=== PATIENT | male | born 1960 | race Caucasian/White ===

== ENCOUNTER → 2017-01-04 | Emergency (ER) | payer OTHER ==
[~2017-01-04] MED LIST: ACETAMINOPHEN 325 MG TABLET (FP) ONE; ACETAMINOPHEN 325 MG TABLET (FP) PO ONE; ACETAMINOPHEN WITH CODEINE 300MG/30MG TABLET ONE
[2017-01-04 23:43] VITALS: BP 131/73; PULSE 88; TEMP 97.6; BMI 22.1
--- NOTE | 2017-01-05 00:06 | PDOC ---
History of Present Illness - General History Source: Patient Exam Limitations: No Limitations - History of Present Illness Initial Comments: 01/05/17 00:36 The patient is a 56 year old male, with a significant past medical history of PVD, anemia, asthma, COPD (on 2L O2 at home as needed), CHF, ESRD on dialysis MWF, and hypertension, who presents to the emergency department with right arm pain and swelling with discoloration for the past 3 days. The patient states that he has been taking motrin for the pain and has been applying warm compresses to the area and talking Motrin for the pain with minimal relief. He notes that he saw a vascular surgeon a few days ago who check his fistula, which at the time was working properly. The patient denies chest pain, shortness of breath, headache and dizziness. Denies fever, chills, nausea, vomit, diarrhea and constipation. Allergies: None Past surgical history: B/L KIDNEY TRANSPLANT 1992, appendectomy Social history: No alcohol, tobacco or drug use reported PMD - Dr. Cavazos <Shivam Curry - Last Filed: 01/05/17 02:05> <Parminder Gautam - Last Filed: 01/05/17 02:19> - General Chief Complaint: Edema Stated Complaint: SWELLING ON RT ARM Time Seen by Provider: 01/04/17 23:38 Past History <Shivam Curry - Last Filed: 01/05/17 02:05> - Past Medical History Anemia: No Asthma: No Cancer: No Cardiac Disorders: No CVA: No COPD: No CHF: No Dementia: No Diabetes: No Dialysis: Yes (Sat) GI Disorders: Yes (ACID REFLUX) Disorders: No HTN: No Hypercholesterolemia: Yes Liver Disease: No Suicide Attempt (Hx): No Seizures: No Thyroid Disease: No - Surgical History Abdominal Surgery: Yes (B/L KIDNEY TRANSPLANT 1992) Appendectomy: Yes Cardiac Surgery: No Cholecystectomy: No Lung Surgery: No Neurologic Surgery: No Orthopedic Surgery: No - Immunization History Immunization Up to Date: Yes (PNA AND FLU 2012) - Psycho/Social/Smoking Cessation Hx Anxiety: No Suicidal Ideation: No Smoking Status: Yes Smoking History: Former smoker Have you smoked in the past 12 months: No Number of Cigarettes Smoked Daily: 0 If you are a former smoker, when did you quit?: no Information on smoking cessation initiated: No 'Breaking Loose' booklet given: 05/31/13 Hx Alcohol Use: No Drug/Substance Use Hx: No Substance Use Type: None Hx Substance Use Treatment: No <Parminder Gautam - Last Filed: 01/05/17 02:19> - Past Medical History Allergies/Adverse Reactions: Allergies Allergy/AdvReac Type Severity Reaction Status Date / Time No Known Drug Allergies Allergy Verified 01/04/17 23:34 Home Medications: Ambulatory Orders Albuterol Sulfate [Proventil HFA Inhaler -] 1 - 2 inh PO QID #0 inhaler Sevelamer Carbonate [Renvela -] 800 mg PO TID #0 tab 09/09/12 Cinacalcet HCl [Sensipar] 30 mg PO ACDIN 12/02/13 Acetaminophen [Tylenol] 650 mg PO PRN 10/14/14 Aspirin [Aspirin EC] 81 mg PO DAILY 02/08/15 Atorvastatin Ca [Lipitor] 20 mg PO HS 02/08/15 Calcitriol [Rocaltrol -] 1 mcg PO DAILY 02/08/15 Calcium Acetate [Phoslo] 1,334 mg PO TID 02/08/15 Calcium Carbonate 500 mg PO QID 02/08/15 Metoprolol Succinate [Toprol XL -] 25 mg PO DAILY 02/08/15 Pantoprazole Sodium [Protonix] 40 mg PO DAILY 02/08/15 Sucroferric Oxyhydroxide [Velphoro] 500 mg PO TID 02/08/15 Oxycodone HCl [Roxicodone -] 5 mg PO Q6H #20 tablet 08/03/15 Acetaminophen W/ Codeine #3 [Tylenol # 3 -] 1 tab PO Q6H PRN #20 tablet MDD 4 Review of Systems - Review of Systems Able to Perform ROS?: Yes Comments:: 01/05/17 00:36 CONSTITUTIONAL: No fever, no chills, no fatigue EYES: No visual changes ENT: No ear pain, no sore throat CARDIOVASCULAR: No chest pain, no palpitations RESPIRATORY: No cough, no SOB GI: No abdominal pain, no nausea, no vomiting, no constipation, no diarrhea GENITOURINARY: No dysuria, no frequency, no hematuria MUSKULOSKELETAL: No backpain, no joint pain, no myalgias EXTREMITIES: (+) Right upper extremity pain. SKIN: (+) Right upper extremity ecchymosis. NEURO: No headache <Shivam Curry - Last Filed: 01/05/17 02:05> *Physical Exam - Vital Signs Last Vital Signs Temp Pulse Resp BP Pulse Ox 97.6 F 88 18 131/73 96 01/04/17 23:34 01/04/17 23:34 01/04/17 23:34 01/04/17 23:34 01/04/17 23:34 - Physical Exam Comments: 01/05/17 00:37 CONSTITUTIONAL: Well-appearing; well-nourished; in no apparent distress HEAD: Normocephalic; atraumatic EYES: PERRL; EOM intact ENMT: External appears normal; normal oropharynx NECK: Supple; non-tender; no cervical lymphadenopathy CARD: Normal S1, S2; no murmurs, rubs, or gallops RESP: Normal chest excursion with respiration; breath sounds clear and equal bilaterally; no wheezes, rhonchi, or rales ABD: Soft, non-distended; non-tender; no palpable organomegaly, no palpable hernias NEURO: No focal neurological deficiencies. <Shivam Curry - Last Filed: 01/05/17 02:05> - Vital Signs Last Vital Signs Temp Pulse Resp BP Pulse Ox 97.6 F 88 18 131/73 96 01/04/17 23:34 01/04/17 23:34 01/04/17 23:34 01/04/17 23:34 01/04/17 23:34 - Physical Exam Comments: 01/05/17 02:11 EXTR: Right upper extremity: There is an extensive subq hematoma involving the mid and proximal forearm as well as the medial aspect of the arm with a soft tissue mass overlying the biceps measuring proximally 4-5 cm, freely mobile, not attached to the skin, mildly tender to palpation; AV fistula with a palpable thrill is noted to the distal forearm; <Parminder Gautam - Last Filed: 01/05/17 02:19> Medical Decision Making - Medical Decision Making 01/05/17 02:14 Patient is a frail-appearing 56-year-old male with multiple comorbidities, on supplemental O2 via nasal cannula 24 hours a day, who presented with a superficial subcutaneous hematoma to the right upper extremity with a soft tissue collection noted proximally; AV fistula is noted to have a palpable thrill and was evaluated by the patient's vascular surgeon previously. In the ER , patient is afebrile; right upper extremity Doppler ultrasound shows no evidence of DVT. A nonvascular collection is noted to the right arm likely consistent with a subcutaneous hematoma. Patient will be discharged with instructions to take acetaminophen as needed every 4 hours and warm compresses with vascular surgery follow-up. <Parminder Guatam - Last Filed: 01/05/17 02:19> *DC/Admit/Observation/Transfer - Attestations Scribe Attestion: 01/05/17 00:36 Documentation prepared by Shivam Curry, acting as medical anthropology director for Parminder Gautam MD <Shivam Curry - Last Filed: 01/05/17 02:05> <Parminder Gautam - Last Filed: 01/05/17 02:19> Diagnosis at time of Disposition: ESRD (end stage renal disease) on dialysis Hematoma of arm Qualifiers: Encounter type: initial encounter Laterality: right Qualified Code(s): S40.021A - Contusion of right upper arm, initial encounter - Discharge Dispostion Disposition: HOME Condition at time of disposition: Stable - Referrals Referrals: Franca Shields MD [Primary Care Provider] - - Patient Instructions Printed Discharge Instructions: DI for Hematoma (Bruise)
== END | disposition home or self-care (01) ==
LOC: JER 23:19
DX: S40.021A Contusion of right upper arm, initial encounter (principal); I25.10 Atherosclerotic heart disease of native coronary artery without angina pectoris; I13.2 Hypertensive heart and chronic kidney disease with heart failure and with stage 5 chronic kidney disease, or end stage renal disease; N18.6 End stage renal disease; I50.9 Heart failure, unspecified; Z99.2 Dependence on renal dialysis; J44.9 Chronic obstructive pulmonary disease, unspecified; J45.909 Unspecified asthma, uncomplicated; Z94.0 Kidney transplant status; I73.9 Peripheral vascular disease, unspecified; X58.XXXA Exposure to other specified factors, initial encounter; Y93.89 Activity, other specified; Y92.89 Other specified places as the place of occurrence of the external cause
CPT/HCPCS: 93971; 99283-25

== ENCOUNTER 2017-02-09 15:08 | Emergency (ER) | payer OTHER ==
[2017-02-09 15:26] VITALS: BP 109/73; PULSE 67; TEMP 97.6; BMI 21.2
--- NOTE | 2017-02-09 16:12 | PDOC ---
History of Present Illness - General History Source: Patient, Old Records Exam Limitations: No Limitations - History of Present Illness Initial Comments: 02/09/17 16:52 The patient is a 56 year old male with past medical history of hypertension, CHF , COPD (2L of O2 at home PRN), PVD, ESRD (on dialysis and Saturday), anemia , and asthma who presents to the ED with complaints of right toe pain for over one week. The patient locates the pain to his right big toe, and rates it 10/10 in severity. He states that what began as a small crack due to dry skin has since worsened and began to open up. He has informed his renal physician about this in which he was prescribed Tylenol III. He is unsure of experiencing any fevers secondary to taking the Tylenol. He also adds that he has an appointment to see his PCP next week. The patient denies any nausea, vomiting, diarrhea. He denies any cough or shortness of breath. He denies any urinary symptoms. Surgical History: B/L kidney transplant 1992, appendectomy PMD: Dr. Franca Shields Infant Room Teacher: Dr. Damaso Pena <Latha Jesus - Last Filed: 02/09/17 17:55> - General History Source: Patient Exam Limitations: No Limitations <Coral Huffman - Last Filed: 02/12/17 07:29> - General Chief Complaint: Pain Stated Complaint: PAIN Time Seen by Provider: 02/09/17 16:11 Past History <Latha Jesus - Last Filed: 02/09/17 17:55> - Past Medical History Anemia: No Asthma: No Cancer: No Cardiac Disorders: No CVA: No COPD: No CHF: No Dementia: No Diabetes: No Dialysis: Yes (Sat) GI Disorders: Yes (ACID REFLUX) Disorders: No HTN: No Hypercholesterolemia: Yes Liver Disease: No Suicide Attempt (Hx): No Seizures: No Thyroid Disease: No - Surgical History Abdominal Surgery: Yes (B/L KIDNEY TRANSPLANT 1992) Appendectomy: Yes Cardiac Surgery: No Cholecystectomy: No Lung Surgery: No Neurologic Surgery: No Orthopedic Surgery: No - Immunization History Immunization Up to Date: Yes (PNA AND FLU 2012) - Psycho/Social/Smoking Cessation Hx Anxiety: No Suicidal Ideation: No Smoking Status: Yes Smoking History: Former smoker Have you smoked in the past 12 months: No Number of Cigarettes Smoked Daily: 0 If you are a former smoker, when did you quit?: 2 years ago Information on smoking cessation initiated: No 'Breaking Loose' booklet given: 05/31/13 Hx Alcohol Use: No Drug/Substance Use Hx: No Substance Use Type: None Hx Substance Use Treatment: No <NathanaelCoral - Last Filed: 02/12/17 07:29> - Past Medical History Allergies/Adverse Reactions: Allergies Allergy/AdvReac Type Severity Reaction Status Date / Time No Known Drug Allergies Allergy Verified 02/09/17 15:15 Home Medications: Ambulatory Orders Albuterol Sulfate [Proventil HFA Inhaler -] 1 - 2 inh PO QID #0 inhaler Sevelamer Carbonate [Renvela -] 800 mg PO TID #0 tab 09/09/12 Cinacalcet HCl [Sensipar] 30 mg PO ACDIN 12/02/13 Acetaminophen [Tylenol] 650 mg PO PRN 10/14/14 Aspirin [Aspirin EC] 81 mg PO DAILY 02/08/15 Atorvastatin Ca [Lipitor] 20 mg PO HS 02/08/15 Calcitriol [Rocaltrol -] 1 mcg PO DAILY 02/08/15 Calcium Acetate [Phoslo] 1,334 mg PO TID 02/08/15 Calcium Carbonate 500 mg PO QID 02/08/15 Metoprolol Succinate [Toprol XL -] 25 mg PO DAILY 02/08/15 Pantoprazole Sodium [Protonix] 40 mg PO DAILY 02/08/15 Sucroferric Oxyhydroxide [Velphoro] 500 mg PO TID 02/08/15 Oxycodone HCl [Roxicodone -] 5 mg PO Q6H #20 tablet 08/03/15 Acetaminophen W/ Codeine #3 [Tylenol # 3 -] 1 tab PO Q6H PRN #20 tablet MDD 4 Acetaminophen W/ Codeine #3 [Tylenol # 3 -] 1 tab PO BID #10 tablet MDD 2 Doxycycline Hyclate [Vibramycin -] 100 mg PO DAILY #14 capsule 02/09/17 Review of Systems - Review of Systems Able to Perform ROS?: Yes Comments:: 02/09/17 16:53 GENERAL/CONSTITUTIONAL: No fever or chills. No weakness. HEAD, EYES, EARS, NOSE AND THROAT: No change in vision. No ear pain or discharge. No sore throat. CARDIOVASCULAR: No chest pain or shortness of breath. RESPIRATORY: No cough, wheezing, or hemoptysis. GASTROINTESTINAL: No nausea, vomiting, diarrhea or constipation. GENITOURINARY: No dysuria, frequency, or change in urination. MUSCULOSKELETAL: No joint or muscle swelling or pain. No neck or back pain. SKIN: Present: Ulcer to right big toe EXTREMITIES: Present: Right big toe pain NEUROLOGIC: No headache, vertigo, loss of consciousness, or change in strength/ sensation. ENDOCRINE: No increased thirst. No abnormal weight change. HEMATOLOGIC/LYMPHATIC: No anemia, easy bleeding, or history of blood clots. ALLERGIC/IMMUNOLOGIC: No hives or skin allergy. All Other Systems: Reviewed and Negative <Latha Jesus - Last Filed: 02/09/17 17:55> *Physical Exam - Vital Signs Last Vital Signs Temp Pulse Resp BP Pulse Ox 97.6 F 67 20 109/73 98 02/09/17 15:15 02/09/17 15:15 02/09/17 15:15 02/09/17 15:15 02/09/17 15:15 - Physical Exam Comments: 02/09/17 16:54 GENERAL: Awake, alert, and fully oriented, in no acute distress HEAD: No signs of trauma EYES: PERRLA, EOMI, sclera anicteric, conjunctiva clear ENT: Auricles normal inspection, hearing grossly normal, nares patent, oropharynx clear without exudates. Moist mucosa NECK: Normal ROM, supple, no lymphadenopathy, JVD, or masses LUNGS: Breath sounds equal, clear to auscultation bilaterally. No wheezes, and no crackles HEART: Systolic ejection murmur. Regular rate and rhythm, normal S1 and S2, no rubs or gallops ABDOMEN: Soft, nontender, normoactive bowel sounds. No guarding, no rebound. No masses EXTREMITIES: 2.5 x 1 cm ulcer on right big toe with denuded skin, fibrinous exudate. No erythema, no lymphangitis. Tender to palpation, but no expressible purulence. Normal range of motion, no edema. No clubbing or cyanosis. NEUROLOGICAL: Cranial nerves II through XII grossly intact. Normal speech, normal gait SKIN: Warm, Dry, normal turgor, no rashes or lesions noted. <Latha Jesus - Last Filed: 02/09/17 17:55> - Vital Signs Last Vital Signs Temp Pulse Resp BP Pulse Ox 97.6 F 67 20 109/73 98 02/09/17 15:15 02/09/17 15:15 02/09/17 15:15 02/09/17 15:15 02/09/17 15:15 <Coral Huffman - Last Filed: 02/12/17 07:29> ED Treatment Course - LABORATORY CBC & Chemistry Diagram: 02/09/17 16:40 02/09/17 16:40 <Latha Jesus - Last Filed: 02/09/17 17:55> - LABORATORY CBC & Chemistry Diagram: 02/09/17 16:40 02/09/17 16:40 <Coral Huffman - Last Filed: 02/12/17 07:29> Medical Decision Making - Medical Decision Making 02/09/17 17:55 Phone call placed to Dr. Shields via answering service and call was connected immediately to covering physician Dr. Hamm. Case discussed. <Latha Jesus - Last Filed: 02/09/17 17:55> - Medical Decision Making 02/09/17 16:12 56 yo M h/o HTN, CHF, COPD (on 2L NC), PVD, ESRD on dialysis MWFS, anemia who presents to the ER due to right great toe ulcer He states this skin defect began as a crack in his skin This worsened to become a ulcer No surrounding erythema He complained to the dialysis physician, who recommended tylenol for pain No fevers or chills 02/09/17 17:49 Laboratory Tests 03/26/16 03/26/16 02/09/17 07:00 07:00 16:40 WBC 2.5 L 4.3 D Hgb 8.9 L 10.5 L D Hct 26.9 L 32.3 L D Plt Count 85 L 111 L D Potassium BUN 58 H D Creatinine 9.9 H* D 02/09/17 16:40 WBC Hgb Hct Plt Count Potassium 4.3 BUN 36 H D Creatinine 5.6 H D 02/09/17 17:51 02/09/17 18:03 Xray: no fracture noted, no air noted Case reviewed with Dr Hamm He states, pt can be discharged to home on Doxycycline Pt can follow up with Dr Cavazos on Saturday in the office return to the ER for any other concerns or complaints 02/09/17 18:09 02/09/17 18:11 02/09/17 18:16 Doppler not working Foot is warm Xray demonstrates no periosteal elevation 02/09/17 18:41 <Coral Huffman - Last Filed: 02/12/17 07:29> *DC/Admit/Observation/Transfer - Attestations Scribe Attestion: 02/09/17 16:57 Documentation prepared by Latha Jesus, acting as medical billing manager for Coral Huffman MD. <Latha Jesus - Last Filed: 02/09/17 17:55> - Discharge Dispostion Admit: No <Coral Huffman - Last Filed: 02/12/17 07:29> Diagnosis at time of Disposition: Toe ulcer Qualifiers: Laterality: right Non-pressure ulcer stage: limited to breakdown of skin Qualified Code(s): L97.511 - Non-pressure chronic ulcer of other part of right foot limited to breakdown of skin - Discharge Dispostion Disposition: HOME Condition at time of disposition: Stable - Prescriptions Prescriptions: Acetaminophen W/ Codeine #3 [Tylenol # 3 -] 1 tab PO BID #10 tablet MDD 2 Doxycycline Hyclate [Vibramycin -] 100 mg PO DAILY #14 capsule - Referrals Referrals: Franca Shields MD [Primary Care Provider] - - Patient Instructions Printed Discharge Instructions: DI for Pressure Sores Additional Instructions: Thank you for coming in to the ER Please follow up with Dr Garcia on SATURDAY (in 2 days) Please take antibiotics as prescribed Please return to the ER for any other concerns or complaints
[2017-02-09] MEDS ORDERED: ACETAMINOPHEN WITH CODEINE 300MG/30MG TABLET PO ONE (16:24)
[2017-02-09 16:49] LABS: BASOPHIL 1.3 % (0-2.0); EOSINOPHIL 1.6 % (0-4.5); MCH 32.2 pg (25.7-33.7); MCHC 32.6 g/dl (32.0-35.9); MEAN CELL VOLUME 98.8 fl (80-96); MEAN PLT VOLUME 8.5 fl (7.5-11.1); NEUTROPHILS 74.9 % (42.8-82.8); PLATELET COUNT 111 K/MM3 (134-434); RDW 16.2 % (11.9-15.9); WHITE BLOOD COUNT 4.3 K/mm3 (4.0-10.0)
[2017-02-09 17:14] LABS: ALBUMIN 3.6 g/dl (3.4-5.0); BILIRUBIN,TOTAL 1.3 mg/dL (0.2-1.0); CALCIUM 9.3 mg/dL (8.5-10.1); CREATININE 5.6 mg/dL (0.7-1.3); TOT PROT 6.9 g/dl (6.4-8.2)
== END 2017-02-09 18:57 | disposition home or self-care (01) ==
LOC: JER 15:08
DX: L97.511 Non-pressure chronic ulcer of other part of right foot limited to breakdown of skin (principal); I50.9 Heart failure, unspecified; J44.9 Chronic obstructive pulmonary disease, unspecified; I12.0 Hypertensive chronic kidney disease with stage 5 chronic kidney disease or end stage renal disease; N18.6 End stage renal disease; Z99.2 Dependence on renal dialysis; Z87.891 Personal history of nicotine dependence
CPT/HCPCS: 36415; 73660-TC; 80053; 85025; 87040; 99282-25

== ENCOUNTER 2017-02-21 09:48 | Day surgery (SDC) | payer OTHER ==
[2017-02-20 17:40] VITALS: BMI 21.7
[2017-02-21] MEDS ORDERED: HEPARIN NA (PORCINE) 5,000 UNITS/ML 1ML VIAL ONE ×2 (10:24→10:59)
[2017-02-21] MEDS ORDERED: LIDOCAINE HCL 1%, 10 MG/ML (20ML VIAL) ONE (10:25)
[2017-02-21 10:39] LABS: INR 1.32 (0.82-1.09); PROTHROMBIN TIME (PATIENT) 14.6 SEC (9.98-11.88)
[2017-02-21] MEDS ORDERED: MIDAZOLAM HCL 2 MG/2 ML SINGLE DOSE VIAL ONE (10:59)
[2017-02-21] MEDS ORDERED: ceFAZolin SODIUM 1 GM VIAL ONE (11:17)
[2017-02-21] MEDS ORDERED: ceFAZolin SODIUM 1 GM VIAL IVPB ONE (11:18)
[2017-02-21] MEDS ORDERED: LIDOCAINE HCL 1%, 10 MG/ML (50 mL VIAL) IJ ONE (11:21)
[2017-02-21] MEDS ORDERED: BACITRACIN 30 GM TUBE TOPICAL OINTMENT ONE (12:02)
[2017-02-21] MEDS ORDERED: morphine CARPU-JECT 2 MG/1 ML DISP.SYRIN IVPUSH PRN (12:13)
[2017-02-21] MEDS ORDERED: oxyCODONE HCL 5 MG TABLET PO PRN (12:13)
[2017-02-21] MEDS ORDERED: ACETAMINOPHEN 325 MG TABLET (FP) PO PRN (12:13)
[2017-02-21] MEDS ORDERED: ONDANSETRON 4 MG/2 ML VIAL IVPUSH PRN (12:13)
--- NOTE | 2017-02-21 12:13 | OP ---
Operative Note - Note: Operative Date: 02/21/17 Pre-Operative Diagnosis: right great toe ulcer Operation: Aortogram, right lower ext angiogram Findings: one vessel runoff -- AT Post-Operative Diagnosis: Same as Pre-op Surgeon: Shailesh Hou Anesthesia: Fractional Estimated Blood Loss (mls): 50 Operative Report Dictated: Yes
[2017-02-21] MEDS ORDERED: SODIUM CHLORIDE 1,000 ML IV SCH (12:15)
--- NOTE | 2017-02-21 12:25 | HP ---
Admitting History and Physical - Admission Chief Complaint: right great toe ulcer - Past Medical History Cardiovascular: Yes: CAD (Probable), HTN, Murmur, Pulmonary Hypertension (per last echo 05/2013) Pulmonary: Yes: COPD, O2 Dependent (see HPI) Renal/: Yes: Renal Failure, Hemodialysis, Other (s/p failed renal transplant see HPI) Heme/Onc: Yes: Anemia - Past Surgical History Past Surgical History: Yes: Hernia Repair, Kidney Transplant - Smoking History Smoking history: Former smoker Have you smoked in the past 12 months: No Aproximately how many cigarettes per day: 0 If you are a former smoker, when did you quit?: 2 years ago - Alcohol/Substance Use Hx Alcohol Use: No History of Substance Use: reports: None - Social History ADL: Family Assistance History of Recent Travel: No Home Medications - Allergies Allergies/Adverse Reactions: Allergies Allergy/AdvReac Type Severity Reaction Status Date / Time No Known Drug Allergies Allergy Verified 02/09/17 15:15 - Home Medications Home Medications: Ambulatory Orders Albuterol Sulfate [Proventil HFA Inhaler -] 1 - 2 inh PO QID #0 inhaler Sevelamer Carbonate [Renvela -] 800 mg PO TID #0 tab 09/09/12 Cinacalcet HCl [Sensipar] 30 mg PO ACDIN 12/02/13 Acetaminophen [Tylenol] 650 mg PO PRN 10/14/14 Aspirin [Aspirin EC] 81 mg PO HS 02/08/15 Atorvastatin Ca [Lipitor] 20 mg PO HS 02/08/15 Calcitriol [Rocaltrol -] 1 mcg PO DAILY 02/08/15 Calcium Acetate [Phoslo] 1,334 mg PO TID 02/08/15 Calcium Carbonate 500 mg PO QID 02/08/15 Metoprolol Succinate [Toprol XL -] 25 mg PO DAILY 02/08/15 Pantoprazole Sodium [Protonix] 40 mg PO DAILY 02/08/15 Sucroferric Oxyhydroxide [Velphoro] 500 mg PO TID 02/08/15 Oxycodone HCl [Roxicodone -] 5 mg PO Q6H #20 tablet 08/03/15 Collagenase Clostridium Hist. [Santyl] 1 applic TP DAILY #90 oint...g. 02/12/17 Family Disease History - Family Disease History Family Disease History: CA: Mother Physical Examination Vital Signs: Vital Signs Temperature 97.5 F L 02/21/17 10:22 Pulse Rate 107 H 02/21/17 10:22 Respiratory Rate 18 02/21/17 10:22 Blood Pressure 116/75 02/21/17 10:22 O2 Sat by Pulse Oximetry (%) Constitutional: Yes: Well Nourished Eyes: Yes: WNL HENT: Yes: WNL Neck: Yes: WNL Cardiovascular: Yes: WNL Respiratory: Yes: WNL, On Nasal O2 Gastrointestinal: Yes: WNL Extremities: Yes: Other (right great toe ulcer) Labs: CBC, BMP 02/21/17 09:57 Assessment/Plan right great toe ulcer 1. For angiogram today
[2017-02-21 13:10] VITALS: TEMP 97.6
[2017-02-21 13:14] VITALS: PULSE 88
[2017-02-21 14:13] VITALS: BP 94/62
--- NOTE | 2017-02-24 19:45 | OP ---
DATE OF OPERATION: 02/21/2017 PREOPERATIVE DIAGNOSIS: Right 2nd toe ulcer. POSTOPERATIVE DIAGNOSIS: Right 2nd toe ulcer. PROCEDURE: Aortogram, right lower extremity angiogram. SURGEON: Shailesh Canales DO ANESTHESIA: Fractional. BLOOD LOSS: 10 mL. The patient is a 53-year-old male who has an ulcer on his right foot. It was decided that he would need an angiogram. The patient was consented for the procedure, understanding all risks, benefits, alternatives. He was then taken to the operating room. Once in the operating room, he was placed on operating table in supine manner and the area of the right and left groin were prepped and draped in a sterile surgical manner. We started out in the left groin and injected 10 mL lidocaine 1% over the left common femoral artery. We then used our micropuncture needle and punctured the left common femoral artery. Micropuncture wire was inserted and a traditional 5-Occitan sheath was inserted. We then placed a 0.035 floppy guidewire up into the aorta, followed by our Omni Flush catheter. However, the aorta was severely tortuous and we could not negotiate getting up the aorta or getting across it to the other side. At this point, we decided that we would need to go ipsilateral in the right lower extremity and in the right common femoral artery. At this point we pulled our sheath and pressure was held over the left common femoral artery for 5 minutes, and thereafter there was no bleeding. The area was wet and dried and Dermabond was placed. We then went ahead and went over to the right side. We then went ahead and went over to the right side, and over went ahead and went over the right common femoral artery and 10 mL of lidocaine 1% was placed there. We then went ahead and used our micropuncture needle and punctured the right common femoral artery. Micropuncture wire was inserted and a traditional 5-Occitan sheath was inserted. We then went ahead and placed a 0.035 floppy guidewire. We then went ahead and shot an angiogram of the right lower extremity via hand injection, showing that the common femoral artery, the profunda, and the SFA were patent. The popliteal artery was patent. The patient had 1-vessel runoff going down into the foot, which was the posterior tibial artery. There was no anterior tibial artery present. At this point there were no stenoses that needed to be opened, and no intervention was needed. At this point we removed our 5-Occitan sheath. Pressure was held over the right common femoral artery for 5 minutes. After there was no more bleeding, the area was wet and dried and Dermabond was placed. Patient tolerated procedure, no complication. Patient was transferred to PACU in stable condition. SHAILESH CANALES DO [id number]
== END 2017-02-21 14:13 | disposition home or self-care (01) ==
LOC: JASU-SURG 09:48
PROVIDERS: ATTEND Surgery Vascular Surgery
PROC: B41DZZZ Fluoroscopy of Aorta and Bilateral Lower Extremity Arteries (ICD-10-PCS; principal; 2017-02-21 10:00)
DX: L97.519 Non-pressure chronic ulcer of other part of right foot with unspecified severity (principal); I12.0 Hypertensive chronic kidney disease with stage 5 chronic kidney disease or end stage renal disease; N18.6 End stage renal disease; Z99.2 Dependence on renal dialysis
CPT/HCPCS: 36415; 76000-TC; 84132; 85610; 85730; 94760; J1644

== ENCOUNTER 2017-03-02 08:47 | Inpatient (IN) | payer OTHER ==
--- NOTE | 2017-03-02 09:19 | PDOC ---
History of Present Illness - General History Source: Patient, Old Records Exam Limitations: No Limitations <Lucy Mercedes - Last Filed: 03/02/17 12:15> - History of Present Illness Initial Comments: 03/02/17 10:45 The patient is a 56 year old male, with a significant past medical history of anemia, CHF, asthma, COPD (2L of O2 at home PRN), PVD, ESRD (on dialysis and Saturday), who presents to the emergency department with pain to his right great toe ulcer today. The patient s/p right lower extremity angiogram with no stenosis visualized on 02/24/[address] Shailesh Hou. He denies chest pain, shortness of breath, headache and dizziness. He denies fever, chills, nausea, vomit, diarrhea and constipation. He denies dysuria, frequency, urgency and hematuria. Allergies: NKDA Past surgical history: s/p right lower extremity angioplasty on 02/24/[address] Hou, B/L kidney transplant (1992), appendectomy PCP - Dr. Shields Maintenance Team Leader - Dr. Damaso Pena <ToshiaGiana - Last Filed: 03/02/17 16:12> - General Chief Complaint: Pain Stated Complaint: TOE PAIN, SOB Time Seen by Provider: 03/02/17 09:08 Past History - Past Medical History Anemia: Yes Asthma: No Cancer: No Cardiac Disorders: Yes (MURMUR,CAD) CVA: No COPD: Yes (O2 DEPENDENT) CHF: No Dementia: No Diabetes: No Dialysis: Yes GI Disorders: Yes (ACID REFLUX) Disorders: No HTN: Yes (PULMONARY) Hypercholesterolemia: Yes Liver Disease: No Suicide Attempt (Hx): No Seizures: No Thyroid Disease: No - Surgical History Abdominal Surgery: Yes (B/L KIDNEY TRANSPLANT 1992) Appendectomy: Yes Cardiac Surgery: No Cholecystectomy: No Lung Surgery: No Neurologic Surgery: No Orthopedic Surgery: No - Immunization History Immunization Up to Date: Yes (PNA AND FLU 2012) - Psycho/Social/Smoking Cessation Hx Anxiety: No Suicidal Ideation: No Smoking Status: Yes Smoking History: Former smoker Have you smoked in the past 12 months: No Number of Cigarettes Smoked Daily: 0 If you are a former smoker, when did you quit?: 2 years ago Information on smoking cessation initiated: No 'Breaking Loose' booklet given: 05/31/13 Hx Alcohol Use: No Drug/Substance Use Hx: No Substance Use Type: None Hx Substance Use Treatment: No <Lucy Mercedes - Last Filed: 03/02/17 12:15> <Giana Pope - Last Filed: 03/02/17 16:12> - Past Medical History Allergies/Adverse Reactions: Allergies Allergy/AdvReac Type Severity Reaction Status Date / Time No Known Drug Allergies Allergy Verified 03/02/17 08:56 Home Medications: Ambulatory Orders Albuterol Sulfate [Proventil HFA Inhaler -] 1 - 2 inh PO QID #0 inhaler Sevelamer Carbonate [Renvela -] 800 mg PO TID #0 tab 09/09/12 Cinacalcet HCl [Sensipar] 30 mg PO ACDIN 12/02/13 Acetaminophen [Tylenol] 650 mg PO PRN 10/14/14 Aspirin [Aspirin EC] 81 mg PO HS 02/08/15 Atorvastatin Ca [Lipitor] 20 mg PO HS 02/08/15 Calcitriol [Rocaltrol -] 1 mcg PO DAILY 02/08/15 Calcium Acetate [Phoslo] 1,334 mg PO TID 02/08/15 Calcium Carbonate 500 mg PO QID 02/08/15 Metoprolol Succinate [Toprol XL -] 25 mg PO DAILY 02/08/15 Pantoprazole Sodium [Protonix] 40 mg PO DAILY 02/08/15 Sucroferric Oxyhydroxide [Velphoro] 500 mg PO TID 02/08/15 Oxycodone HCl [Roxicodone -] 5 mg PO Q6H #20 tablet 08/03/15 Collagenase Clostridium Hist. [Santyl] 1 applic TP DAILY #90 oint...g. 02/12/17 Review of Systems - Review of Systems Able to Perform ROS?: Yes Comments:: 03/02/17 10:45 GENERAL/CONSTITUTIONAL: No fever or chills. No weakness. HEAD, EYES, EARS, NOSE AND THROAT: No change in vision. No ear pain or discharge. No sore throat. CARDIOVASCULAR: No chest pain or shortness of breath. RESPIRATORY: No cough, wheezing, or hemoptysis. GASTROINTESTINAL: No nausea, vomiting, diarrhea or constipation. GENITOURINARY: No dysuria, frequency, or change in urination. MUSCULOSKELETAL: No joint or muscle swelling or pain. No neck or back pain. SKIN: (+) painful ulcer to R 1st toe. No rash NEUROLOGIC: No headache, vertigo, loss of consciousness, or change in strength/ sensation. ENDOCRINE: No increased thirst. No abnormal weight change. HEMATOLOGIC/LYMPHATIC: No anemia, easy bleeding, or history of blood clots. ALLERGIC/IMMUNOLOGIC: No hives or skin allergy. <Giana Pope - Last Filed: 03/02/17 16:12> *Physical Exam - Vital Signs Last Vital Signs Temp Pulse Resp BP Pulse Ox 97.7 F 76 20 93/74 100 03/02/17 08:57 03/02/17 08:57 03/02/17 08:57 03/02/17 08:57 03/02/17 08:57 <Lucy Mercedes - Last Filed: 03/02/17 12:15> - Vital Signs Last Vital Signs Temp Pulse Resp BP Pulse Ox 97.7 F 76 20 93/74 100 03/02/17 08:57 03/02/17 08:57 03/02/17 08:57 03/02/17 08:57 03/02/17 08:57 - Physical Exam Comments: 03/02/17 10:46 GENERAL: Awake, alert, and fully oriented, in no acute distress HEAD: No signs of trauma EYES: PERRLA, EOMI, sclera anicteric, conjunctiva clear ENT: Auricles normal inspection, hearing grossly normal, nares patent, oropharynx clear without exudates. Moist mucosa NECK: Normal ROM, supple, no lymphadenopathy, JVD, or masses LUNGS: Breath sounds equal, clear to auscultation bilaterally. No wheezes, and no crackles HEART: Regular rate and rhythm, normal S1 and S2, no murmurs, rubs or gallops ABDOMEN: Soft, nontender, normoactive bowel sounds. No guarding, no rebound. No masses EXTREMITIES: Normal range of motion, no edema. No clubbing or cyanosis. No cords NEUROLOGICAL: Cranial nerves II through XII grossly intact. Normal speech, normal gait SKIN: (+) ulcer with surrounding erythema to 1st right toe extending into the dorsum of the foot to the distal metatarsal region. <Giana Pope - Last Filed: 03/02/17 16:12> Heart Score/ECG Review - ECG Intrepretation Comment:: 03/02/17 16:11 ECG was read by Dr. Mercedes at 10:15 Impression: Atrial Fibrillation with premature ventricular or aberrantly conducted complexes. Right bundle branch block. Lateral infarct. Vent Rate: 81 bpm <Giana Pope - Last Filed: 03/02/17 16:12> ED Treatment Course - LABORATORY CBC & Chemistry Diagram: 03/02/17 10:07 03/02/17 10:07 <Lucy Mercedes - Last Filed: 03/02/17 12:15> - LABORATORY CBC & Chemistry Diagram: 03/02/17 10:07 03/02/17 10:07 - ADDITIONAL ORDERS Additional order review: 03/02/17 10:07 RBC 3.31 L MCV 101.0 H MCHC 32.4 RDW 17.5 H MPV 8.9 Neutrophils % 75.6 Lymphocytes % 15.0 Monocytes % 7.3 Eosinophils % 0.9 Basophils % 1.2 - RADIOLOGY Radiograph Interpretation: CXR was read by Dr. Yoo at 10:40 Impression: imaging reveals a large heart, sclerotic unfolded aorta, pericardial calcification, prominent ileana, degenerative changes and lytic findings in the bones. There is suggestion of old rib trauma. there are compressed vertebral bodies with a [place] spine compatible with renal disease. Since 02/19/17 there is not much change. 03/02/17 11:56 Right foot XRAY was read by Dr. Yoo at 10:42 Impression: Loss of bone density. Possibl soft tissue ulceration by great toe tip. Vascular calcifications. <Giana Pope - Last Filed: 03/02/17 16:12> Medical Decision Making - Medical Decision Making 03/02/17 12:15 56-year-old male with history of COPDon oxygen, end-stage renal disease on dialysis Saturday, CHF, peripheral vascular disease, hypertension who is status post right lower extremity angiogram with no stenosis visualized presents to the emergency Department with complaints of increasing right great toe pain and erythema after being on oral antibiotics for one week. Differential diagnosis includes but is not limited to: Osteomyelitis, cellulitis, sepsis. Plan: 1. Labs 2. IV antibiotics 3. Plain films of the foot 4. Pain management 5. Observe and reevaluate Addendum: Labs were reviewed and are noted in the EMR. The CRP is elevated. The foot film shows no evidence of osteomyelitis of the great toe. Will admit for intravenous antibiotics for failed outpatient treatment of cellulitis. <Lucy Mercedes - Last Filed: 03/02/17 12:15> - Medical Decision Making 03/02/17 10:57 Dr. Shailesh Hou was paged via phone answering service requesting a call back for doctor to doctor consult at this time. I have been informed Dr. Kemp is on-call for Dr. Hou this weekend. 03/02/17 11:45 The patient's case was discussed with Dr. Kemp. <Giana Pope - Last Filed: 03/02/17 16:12> *DC/Admit/Observation/Transfer - Discharge Dispostion Admit: Yes - Attestations Physician Attestion: 03/02/17 12:18 I, Dr. Lucy Mercedes, attest that the scribes documentation that appears above has been prepared under my direction and personally reviewed by me in its entirety. I confirmed that the note above accurately reflects all work, treatment, procedures, and medical decision-making performed by me. <Lucy Mercedes - Last Filed: 03/02/17 12:15> - Attestations Scribe Attestion: 03/02/17 10:47 Documentation prepared by Giana Pope, acting as medical laboratory assistant for Lucy Mercedes MD, <Giana Pope - Last Filed: 03/02/17 16:12> Diagnosis at time of Disposition: Cellulitis of great toe, right, ESRD (end stage renal disease) on dialysis - Discharge Dispostion Condition at time of disposition: Stable - Referrals
[2017-03-02 10:11] LABS: BASOPHIL 1.2 % (0-2.0); EOSINOPHIL 0.9 % (0-4.5); MCH 32.7 pg (25.7-33.7); MCHC 32.4 g/dl (32.0-35.9); MEAN PLT VOLUME 8.9 fl (7.5-11.1); NEUTROPHILS 75.6 % (42.8-82.8); PLATELET COUNT 86 K/MM3 (134-434); RDW 17.5 % (11.9-15.9); WHITE BLOOD COUNT 4.2 K/mm3 (4.0-10.0)
[2017-03-02 10:45] LABS: ALBUMIN 3.6 g/dl (3.4-5.0); ALK PHOS 150 U/L (45-117); ANION GAP 9 (8-16); BILIRUBIN,TOTAL 2.1 mg/dL (0.2-1.0); CALCIUM 9.2 mg/dL (8.5-10.1); CO2 32 mmol/L (21-32); CREATININE 3.6 mg/dL (0.7-1.3); GLUCOSE,RANDOM 83 mg/dL (74-106); SGOT/AST 26 U/L (15-37); SGPT/ALT 14 U/L (12-78); TOT PROT 6.8 g/dl (6.4-8.2)
[2017-03-02] MEDS ORDERED: OXYCODONE/APAP 5/325MG COMBO TABLET PO ONE (11:04)
[2017-03-02 11:08] LABS: C-REACTIVE PROTEIN 1.4 MG/DL (0.00-0.3)
--- NOTE | 2017-03-02 11:16 | EKG ---
Test Reason : Blood Pressure : / mmHG Vent. Rate : 081 BPM Atrial Rate : 107 BPM P-R Int : 000 ms QRS Dur : 176 ms QT Int : 466 ms P-R-T Axes : 000 189 023 degrees QTc Int : 541 ms ATRIAL FIBRILLATION WITH PREMATURE VENTRICULAR OR ABERRANTLY CONDUCTED COMPLEXES RIGHT BUNDLE BRANCH BLOCK LATERAL INFARCT , AGE UNDETERMINED ABNORMAL ECG WHEN COMPARED WITH ECG OF 19-MAR-2016 22:16, NO SIGNIFICANT CHANGE WAS FOUND Confirmed by JOE FUNG MD ([id number]) on 03/02/2017 11:16:24 AM Referred By: Confirmed By:JOE FUNG MD
[2017-03-02] MEDS ORDERED: PIPERACILLIN/TAZOB 3.375 GM/50 ML PRE-DOCKED IV ONE (12:20)
[2017-03-02] MEDS ORDERED: PIPERACILLIN/TAZOB 3.375 GM 50 ML IVPB ONE (12:30)
--- NOTE | 2017-03-02 14:02 | CONSULT ---
Consult Consult Specialty:: Dr. Rai/ Jean Referred by:: Dr. Jade Reason for Consultation:: Patient with ESRD on HD - History of Present Illness Chief Complaint: Right foot infection and ulceration History of Present Illness: The patient is a 56 year old male, with a significant past medical history of ESRD, on HD at [facility] on MWFS ( 4 times a week) , anemia, CHF, asthma, COPD (2L of O2 at home PRN), PVD, who presents to the emergency department with pain to his right great toe ulcer today. The patient s/p right lower extremity angiogram with no stenosis visualized on 02/24/[address] Shailesh Hou. Has right big toe ulceration, which is getting worse. The patient being followed by Dr. Hou. He came for his dialysis today, and snf through, his pain was excruciating and hence he was sent to the ER. - History Source History Provided By: Patient, Medical Record - Past Medical History Cardio/Vascular: Yes: CAD (Probable), HTN, Murmur, Pulmonary Hypertension (per last echo 05/2013) Pulmonary: Yes: COPD, O2 Dependent (see HPI) Renal/: Yes: Renal Failure, Hemodialysis, Other (s/p failed renal transplant see HPI) - Past Surgical History Past Surgical History: Yes: Hernia Repair, Kidney Transplant - Alcohol/Substance Use Hx Alcohol Use: No History of Substance Use: reports: None - Smoking History Smoking history: Former smoker Have you smoked in the past 12 months: No Aproximately how many cigarettes per day: 0 If you are a former smoker, when did you quit?: 2 years ago - Social History Usual Living Arrangement: With Child (one of his daughters) ADL: Family Assistance History of Recent Travel: No Home Medications - Allergies Allergies/Adverse Reactions: Allergies Allergy/AdvReac Type Severity Reaction Status Date / Time No Known Drug Allergies Allergy Verified 03/02/17 08:56 - Home Medications Home Medications: Ambulatory Orders Albuterol Sulfate [Proventil HFA Inhaler -] 1 - 2 inh PO QID #0 inhaler Sevelamer Carbonate [Renvela -] 800 mg PO TID #0 tab 09/09/12 Cinacalcet HCl [Sensipar] 30 mg PO ACDIN 12/02/13 Acetaminophen [Tylenol] 650 mg PO PRN 10/14/14 Aspirin [Aspirin EC] 81 mg PO HS 02/08/15 Atorvastatin Ca [Lipitor] 20 mg PO HS 02/08/15 Calcitriol [Rocaltrol -] 1 mcg PO DAILY 02/08/15 Calcium Acetate [Phoslo] 1,334 mg PO TID 02/08/15 Calcium Carbonate 500 mg PO QID 02/08/15 Metoprolol Succinate [Toprol XL -] 25 mg PO DAILY 02/08/15 Pantoprazole Sodium [Protonix] 40 mg PO DAILY 02/08/15 Sucroferric Oxyhydroxide [Velphoro] 500 mg PO TID 02/08/15 Oxycodone HCl [Roxicodone -] 5 mg PO Q6H #20 tablet 08/03/15 Collagenase Clostridium Hist. [Santyl] 1 applic TP DAILY #90 oint...g. 02/12/17 Family Disease History - Family Disease History Family Disease History: CA: Mother Review of Systems - Review of Systems Constitutional: reports: Weakness Eyes: denies: Blurred Vision HENT: denies: Difficult Swallowing Cardiovascular: denies: Chest Pain Gastrointestinal: denies: Abdominal Pain Musculoskeletal: reports: Extremity Pain (Rt lower extremity pain) Neurological: reports: Numbness, Parasthesia Physical Exam Vital Signs: Vital Signs Temperature 97.7 F 03/02/17 13:10 Pulse Rate 111 H 03/02/17 13:10 Respiratory Rate 16 03/02/17 13:10 Blood Pressure 112/59 03/02/17 13:10 O2 Sat by Pulse Oximetry (%) 96 03/02/17 13:10 Constitutional: Yes: Moderate Distress (pain) HENT: Yes: Normocephalic Neck: Yes: Supple Cardiovascular: Yes: S1, S2 Respiratory: Yes: CTA Bilaterally Gastrointestinal: Yes: Normal Bowel Sounds, Abdomen, Obese Renal/: Yes: Anuria (Patient on Dialysis) Extremities: Yes: Cool, Other (Ulceration of the right big toe. Swollen. Open wound.) Problem List - Problems (1) Cellulitis of great toe, right Code(s): L03.031 - CELLULITIS OF RIGHT TOE (2) ESRD (end stage renal disease) on dialysis Code(s): N18.6 - END STAGE RENAL DISEASE Z99.2 - DEPENDENCE ON RENAL DIALYSIS (3) Anemia in ESRD (end-stage renal disease) Code(s): N18.6 - END STAGE RENAL DISEASE D63.1 - ANEMIA IN CHRONIC KIDNEY DISEASE (4) CHF (congestive heart failure) Code(s): I50.9 - HEART FAILURE, UNSPECIFIED (5) Peripheral artery insufficiency Code(s): I73.9 - PERIPHERAL VASCULAR DISEASE, UNSPECIFIED (6) Peripheral vascular disease Code(s): I73.9 - PERIPHERAL VASCULAR DISEASE, UNSPECIFIED (7) Toe ulcer Code(s): L97.509 - NON-PRESSURE CHRONIC ULCER OTH PRT UNSP FOOT W UNSP SEVERITY Qualifiers: Laterality: right Non-pressure ulcer stage: limited to breakdown of skin Qualified Code(s): L97.511 - Non-pressure chronic ulcer of other part of right foot limited to breakdown of skin Assessment/Plan This is a 56 y/o male with ESRD, on HD MWF& S. 4 Times a week Right toe ulcer, with discharge. R/o Vascular disease vs. Osteomyelitis. IV antibiotics as ordered. Vascular evaluation. Will arrange for HD as needed. Will follow with you. Thank you. Kayla Rai MD
[2017-03-02 15:58] VITALS: BMI 22.5
[2017-03-02 16:25] LABS: ERYTHROCYTE SEDIMENTATION RATE 6 mm/hr (0-20)
--- NOTE | 2017-03-02 18:09 | PN ---
Progress Note (short form) - Note Progress Note: ID Full note dictated Selected Entries 03/02/17 15:36 Temperature 97.7 F Pulse Rate 77 Respiratory 18 Rate Blood Pressure 119/59 Exam Right foot with painful vascular ulcer distal great toe and smaller one 2nd toe no cellulitis NO purulence Laboratory Tests 03/02/17 10:07 WBC 4.2 Hgb 10.8 L Plt Count 86 L IMPRESSION Severe PVD with vascular painful ulcers. ESRD Plan Do not see indication for antibibiotics at this time Vascular consultation Ginna JAIME
[2017-03-02] MEDS: oxyCODONE HCL 5 MG TABLET PO PRN (20:16)
[2017-03-02] MEDS: ASPIRIN COATED 81 MG TABLET.EC PO SCH (22:51)
[2017-03-02] MEDS: ATORVASTATIN CA 20 MG TABLET (FP) PO SCH (22:51)
[2017-03-03] MEDS ORDERED: SUCROFERRIC OXYHYDROXIDE 500 MG PO SCH (08:00)
[2017-03-03] MEDS ORDERED: PT OWN MED DRAWER 7, Y5N ONE ×2 (08:21→18:32)
[2017-03-03] MEDS: SEVELAMER CARBONATE 800 MG TAB (FP) PO SCH ×3 (08:25→17:04)
[2017-03-03] MEDS: CALCIUM ACETATE 667 MG CAPSULE (FP) PO SCH ×3 (08:25→17:04)
[2017-03-03] MEDS: CALCITRIOL 0.25 MCG CAPSULE (FP) PO SCH (09:21)
[2017-03-03] MEDS: COLLAGENASE CLOSTRIDIUM HIST. 30 GRAMS TUBE TP SCH (09:21)
[2017-03-03] MEDS: PANTOPRAZOLE 40 MG TABLET (FP) PO SCH (09:21)
[2017-03-03] MEDS ORDERED: METOPROLOL SUCCINATE 25 MG TAB.SR.24H (FP) PO SCH (10:00)
[2017-03-03] MEDS: oxyCODONE HCL 5 MG TABLET PO PRN ×2 (11:09→20:41)
[2017-03-03] MEDS: ACETAMINOPHEN 325 MG TABLET (FP) PO PRN ×2 (11:10→20:42)
--- NOTE | 2017-03-03 13:58 | PN ---
Progress Note, Physician Chief Complaint: Pt lying in bed Id Note appreciated VasculaR AND CARDIOLOLOGY NOTE APPRECIATED - Current Medication List Current Medications: Active Medications Acetaminophen (Tylenol -) 650 mg PO Q6H PRN PRN Reason: FEVER OR PAIN Last Admin: 03/03/17 11:10 Dose: 650 mg Aspirin (Ecotrin -) 81 mg PO [facility] Last Admin: 03/02/17 22:51 Dose: 81 mg Atorvastatin Calcium (Lipitor -) 20 mg PO [facility] Last Admin: 03/02/17 22:51 Dose: 20 mg Calcitriol (Rocaltrol -) 1 mcg PO DAILY [facility] Last Admin: 03/03/17 09:21 Dose: 1 mcg Calcium Acetate (Phoslo -) 1,334 mg PO TIDCM [facility] Last Admin: 03/03/17 12:13 Dose: Not Given Cinacalcet (Sensipar -) 30 mg PO ACDIN [facility] Collagenase (Santyl -) 1 applic TP DAILY [facility] Last Admin: 03/03/17 09:21 Dose: 1 applic Metoprolol Succinate (Toprol Xl -) 25 mg PO DAILY [facility] Last Admin: 03/03/17 09:21 Dose: 25 mg Non-Formulary Med ( Sucroferric Oxyhydroxide [ Velphoro] 500mg Tab) 1 each PO TIDCM [facility] Oxycodone HCl (Roxicodone -) 5 mg PO Q6H PRN Last Admin: 03/03/17 11:09 Dose: 5 mg Pantoprazole Sodium (Protonix -) 40 mg PO DAILY [facility] Last Admin: 03/03/17 09:21 Dose: 40 mg Sevelamer Carbonate (Renvela -) 800 mg PO TIDCM [facility] Last Admin: 03/03/17 12:13 Dose: Not Given - Objective Vital Signs: Vital Signs Temperature 97.4 F L 03/03/17 09:19 Pulse Rate 73 03/03/17 09:19 Respiratory Rate 22 03/03/17 09:19 Blood Pressure 125/86 03/03/17 09:19 O2 Sat by Pulse Oximetry (%) 96 03/03/17 09:15 Constitutional: Yes: No Distress Eyes: Yes: Conjunctiva Clear HENT: Yes: Atraumatic Neck: Yes: Supple, Trachea Midline Cardiovascular: Yes: Regular Rate and Rhythm Respiratory: Yes: Regular, CTA Bilaterally Gastrointestinal: Yes: Normal Bowel Sounds Extremities: Yes: Other (RT BIG TOE uLCER) Edema: No Wound/Incision: Yes: Dressing Dry and Intact Neurological: Yes: Alert, Oriented - ....Imaging Chest X-ray: Report Reviewed Assessment/Plan RT big toe ulcer ESRD AF HTN HYpercholestrolemia PLAN Continue wound Dressing Vascular Consult ,cardiology consult Continue home medications Monitor inr
--- NOTE | 2017-03-03 14:23 | CONS ---
DATE OF CONSULTATION: 03/02/2017 This is a 56-year-old male with a history of end-stage renal disease and severe peripheral vascular disease, who I am asked to see for a right great distal toe ulcer. The patient has a history of a right lower extremity angiogram and has been followed by Dr. Hou. He has had a chronic ulcer of his distal toe, which was getting worse in the sense that the pain has been excruciating for him. I am asked to see him for antibiotic management for skin and soft tissue infected related to the ulcer. He has no fever or chills. He is on dialysis 3 times a week through an AV fistula in his right arm. Past medical history includes congestive heart failure, COPD, end-stage renal disease, chronic hemodialysis, pulmonary hypertension, kidney transplant. MEDICATIONS: Albuterol, Sensipar, atorvastatin, calcium, metoprolol, oxycodone. ALLERGIES: None known. SOCIAL HISTORY: Quit smoking 2 years ago. No history of alcohol or substance abuse. FAMILY HISTORY, REVIEW OF SYSTEMS: All systems reviewed and noncontributory. PHYSICAL EXAMINATION: General: He was a chronically ill-appearing male in no acute distress. Vital Signs: Temperature 97.7, pulse 77, blood pressure 120/60, respirations 16. Neck: Supple without lymphadenopathy. Lungs: Clear to percussion and auscultation. Heart: S1, S2. Regular rhythm. No audible murmur. Abdomen: Soft. Normoactive bowel sounds. No organomegaly. Extremities: Revealed an exquisitely tender ulcer of the right distal toe with a smaller ulcer present on the right 2nd toe distally. No drainage, purulence, or cellulitis evident. The white count is 4.2, hemoglobin 10.8, platelets 86,000. ASSESSMENT: A 56-year-old male with end-stage renal disease, presents with worsening pain related to vascular ulcer following right lower extremity angioplasty February 24, 2017. Former kidney transplant in 1992 noted. At this point the ulcers do not appear infected. I would await Dr. Hou's consultation and treat with analgesics, but no need for antibiotics at the current time. YOSVANY FAUSTIN M.D. [facility]/[id number]
[2017-03-03 15:02] LABS: INR 1.38 (0.82-1.09); PROTHROMBIN TIME (PATIENT) 15.3 SEC (9.98-11.88)
--- NOTE | 2017-03-03 15:21 | HP ---
DATE OF ADMISSION: 03/02/2017 The patient is a 56-year-old male with a significant past medical history of CHF, asthma, end-stage renal disease on dialysis, peripheral vascular disease, anemia, and atrial fibrillation, presented to the emergency room with complaints of right great toe ulcer with pain. The patient was in the process of dialysis, in between dialysis, with complaints of severe pain over the right big toe ulcer, so referred the patient to the emergency room from the dialysis center. Patient had a right lower extremity angiogram done on February 24. No stenosis found, according to the note. Patient denies any chest pain, shortness of breath, any discharge from the wound, fever. No other symptoms. No known drug allergy. PAST SURGICAL HISTORY: Status post lower extremity angiogram, kidney transplant, and appendectomy. Lives with the family. MEDICATION: The patient is on albuterol inhaler, Renvela, Sensipar, Tylenol, aspirin, Lipitor, Rocaltrol, PhosLo, calcium carbonate, Toprol, Protonix, Velphoro, Roxicodone, collagenase clostridium topical application. PAST MEDICAL HISTORY: As mentioned before, anemia, atrial fibrillation, COPD, hypercholesterolemia, pulmonary hypertension. SURGERY: Bilateral kidney transplant. The patient was a former smoker. No history of any drug administration. REVIEW OF SYSTEMS: General: No fever, no chills. Head and Neck: No vision changes. Cardiovascular: No chest pain, no shortness of breath. Respiratory: No cough, no wheezing. Gastrointestinal: Nothing significant. Genitourinary: Nothing significant. Musculoskeletal: There is a painful ulcer on the right 5th toe. Neurological: Nothing significant. Endocrine: No increased thirst. Hematologic: History of anemia. PHYSICAL EXAMINATION IN EMERGENCY ROOM: Vital Signs: Temperature 97.7. Pulse 76 per minute. Respiration 20. Blood pressure 93/74. Saturation 100%. General: Alert, oriented x3. No apparent distress. Head and Neck: Normal. Pupils equally reactive to light and accommodation. Neck normal. Lungs: Equal bilateral air entry. Cardiovascular: 1st and 2nd sound irregular. Abdomen: Soft and nontender. Normal bowel sounds. Extremities: With an ulcer on the right 1st toe extending into the dorsum of the foot, slight erythema around. Pedal pulses present. EKG shows atrial fibrillation with premature ventricular or aberrantly conducted complexes, right bundle-branch block. Chest x-ray shows large heart, sclerotic aorta. No pericardial calcification. Prominent hilar degenerative changes in the bones, with old rib fracture, compressed vertebral bodies. Right foot x-ray: Loss of bone density, possible soft-tissue ulceration, right great toe. Ossicular calcification present. The patient is a 56-year-old male with a history of COPD, O2 dependent, end-stage renal disease, on dialysis, peripheral vascular disease, hypertension, pulmonary hypertension, status post right lower extremity angiogram, admitted with a great toe ulcer, not responding to oral antibiotics as an outpatient, admitted with a right big toe ulcer with severe pain, end-stage renal disease, anemia, peripheral vascular disease. PLAN: Home medication resumed. ID consult, renal consult, cardiology, and vascular consults called. Wound dressing recommended. Monitor the PT/INR. Patient stable on the floor. BERHANE VALLES M.D. /[id number]
[2017-03-03] MEDS: CINACALCET HCL 30 MG TAB (FP) PO SCH (17:04)
--- NOTE | 2017-03-03 17:50 | PN ---
Progress Note, Physician History of Present Illness: The patient is a 56 year old male, with a significant past medical history of ESRD, on HD at [facility] on MWFS ( 4 times a week) , anemia, CHF, asthma, COPD (2L of O2 at home PRN), PVD, who presents to the emergency department with pain to his right great toe ulcer today. The patient s/p right lower extremity angiogram with no stenosis visualized on 02/24/[address] Shailesh Hou. Has right big toe ulceration, which is getting worse. The patient being followed by Dr. Hou. - Current Medication List Current Medications: Active Medications Acetaminophen (Tylenol -) 650 mg PO Q6H PRN PRN Reason: FEVER OR PAIN Last Admin: 03/03/17 11:10 Dose: 650 mg Aspirin (Ecotrin -) 81 mg PO [facility] Last Admin: 03/02/17 22:51 Dose: 81 mg Atorvastatin Calcium (Lipitor -) 20 mg PO [facility] Last Admin: 03/02/17 22:51 Dose: 20 mg Calcitriol (Rocaltrol -) 1 mcg PO DAILY [facility] Last Admin: 03/03/17 09:21 Dose: 1 mcg Calcium Acetate (Phoslo -) 1,334 mg PO TIDCM [facility] Last Admin: 03/03/17 17:04 Dose: 1,334 mg Cinacalcet (Sensipar -) 30 mg PO ACDIN [facility] Last Admin: 03/03/17 17:04 Dose: 30 mg Collagenase (Santyl -) 1 applic TP DAILY [facility] Last Admin: 03/03/17 09:21 Dose: 1 applic Metoprolol Succinate (Toprol Xl -) 25 mg PO DAILY [facility] Last Admin: 03/03/17 09:21 Dose: 25 mg Non-Formulary Med ( Sucroferric Oxyhydroxide [ Velphoro] 500mg Tab) 1 each PO TIDCM [facility] Oxycodone HCl (Roxicodone -) 5 mg PO Q6H PRN Last Admin: 03/03/17 11:09 Dose: 5 mg Pantoprazole Sodium (Protonix -) 40 mg PO DAILY [facility] Last Admin: 03/03/17 09:21 Dose: 40 mg Sevelamer Carbonate (Renvela -) 800 mg PO TIDCM [facility] Last Admin: 03/03/17 17:04 Dose: 800 mg Warfarin Sodium (Coumadin -) 6 mg PO DAILY@1800 [facility] Last Admin: 03/03/17 17:04 Dose: 6 mg - Objective Vital Signs: Vital Signs Temperature 98.1 F 03/03/17 14:16 Pulse Rate 93 H 03/03/17 14:16 Respiratory Rate 120 H 03/03/17 14:16 Blood Pressure 143/63 03/03/17 14:16 O2 Sat by Pulse Oximetry (%) 96 03/03/17 09:15 Constitutional: Yes: Calm, Anxious Eyes: Yes: Conjunctiva Clear HENT: Yes: Normocephalic Neck: Yes: Supple Cardiovascular: Yes: S1, S2 Respiratory: Yes: Regular. No: Rales, Rhonchi Gastrointestinal: Yes: Normal Bowel Sounds, Soft Genitourinary: No: CVA Tenderness - Left, CVA Tenderness - Right Musculoskeletal: Yes: Back Pain Labs: INR, PTT INR 1.38 (0.82-1.09) H 03/03/17 14:25 Problem List - Problems (1) Cellulitis of great toe, right Code(s): L03.031 - CELLULITIS OF RIGHT TOE (2) ESRD (end stage renal disease) on dialysis Code(s): N18.6 - END STAGE RENAL DISEASE Z99.2 - DEPENDENCE ON RENAL DIALYSIS (3) Anemia in ESRD (end-stage renal disease) Code(s): N18.6 - END STAGE RENAL DISEASE D63.1 - ANEMIA IN CHRONIC KIDNEY DISEASE (4) CHF (congestive heart failure) Code(s): I50.9 - HEART FAILURE, UNSPECIFIED (5) Peripheral artery insufficiency Code(s): I73.9 - PERIPHERAL VASCULAR DISEASE, UNSPECIFIED (6) Peripheral vascular disease Code(s): I73.9 - PERIPHERAL VASCULAR DISEASE, UNSPECIFIED (7) Toe ulcer Code(s): L97.509 - NON-PRESSURE CHRONIC ULCER OTH PRT UNSP FOOT W UNSP SEVERITY Qualifiers: Laterality: right Non-pressure ulcer stage: limited to breakdown of skin Qualified Code(s): L97.511 - Non-pressure chronic ulcer of other part of right foot limited to breakdown of skin Assessment/Plan This is a 56 y/o male with ESRD, on HD MWF& S. 4 Times a week Right toe ulcer, with discharge. R/o Vascular disease vs. Osteomyelitis. IV antibiotics as ordered. Vascular evaluation. Next HD tomorrow. Will follow Kayla Rai MD
[2017-03-03] MEDS ORDERED: WARFARIN NA 3 MG TABLET PO SCH (18:00)
[2017-03-03] MEDS: ASPIRIN COATED 81 MG TABLET.EC PO SCH (23:46)
[2017-03-03] MEDS: ATORVASTATIN CA 20 MG TABLET (FP) PO SCH (23:47)
[2017-03-04] MEDS: ACETAMINOPHEN 325 MG TABLET (FP) PO PRN ×2 (07:50→17:29)
[2017-03-04] MEDS: oxyCODONE HCL 5 MG TABLET PO PRN ×2 (07:50→17:29)
[2017-03-04] MEDS: CALCIUM ACETATE 667 MG CAPSULE (FP) PO SCH ×3 (08:00→17:25)
[2017-03-04] MEDS: SEVELAMER CARBONATE 800 MG TAB (FP) PO SCH ×3 (08:00→17:25)
[2017-03-04] MEDS ORDERED: EPOETIN ALFA 10,000 UNIT/1 ML VIAL SQ ONE (08:00)
--- NOTE | 2017-03-04 08:16 | PN ---
Progress Note, Physician Chief Complaint: Pt lying in bed Id Note appreciated VasculaR AND NOTE APPRECIATED - Current Medication List Current Medications: Active Medications Acetaminophen (Tylenol -) 650 mg PO Q6H PRN PRN Reason: FEVER OR PAIN Last Admin: 03/04/17 07:50 Dose: 650 mg Aspirin (Ecotrin -) 81 mg PO HS [facility] Last Admin: 03/03/17 23:46 Dose: 81 mg Atorvastatin Calcium (Lipitor -) 20 mg PO HS [facility] Last Admin: 03/03/17 23:47 Dose: 20 mg Calcitriol (Rocaltrol -) 1 mcg PO DAILY [facility] Last Admin: 03/03/17 09:21 Dose: 1 mcg Calcium Acetate (Phoslo -) 1,334 mg PO TIDCM [facility] Last Admin: 03/03/17 17:04 Dose: 1,334 mg Cinacalcet (Sensipar -) 30 mg PO ACDIN [facility] Last Admin: 03/03/17 17:04 Dose: 30 mg Collagenase (Santyl -) 1 applic TP DAILY [facility] Last Admin: 03/03/17 09:21 Dose: 1 applic Metoprolol Succinate (Toprol Xl -) 25 mg PO DAILY [facility] Last Admin: 03/03/17 09:21 Dose: 25 mg Non-Formulary Med ( Sucroferric Oxyhydroxide [ Velphoro] 500mg Tab) 1 each PO TIDCM [facility] Oxycodone HCl (Roxicodone -) 5 mg PO Q6H PRN Last Admin: 03/04/17 07:50 Dose: 5 mg Pantoprazole Sodium (Protonix -) 40 mg PO DAILY [facility] Last Admin: 03/03/17 09:21 Dose: 40 mg Sevelamer Carbonate (Renvela -) 800 mg PO TIDCM [facility] Last Admin: 03/03/17 17:04 Dose: 800 mg Warfarin Sodium (Coumadin -) 6 mg PO DAILY@1800 [facility] Last Admin: 03/03/17 17:04 Dose: 6 mg - Objective Vital Signs: Vital Signs Temperature 98.4 F 03/04/17 07:00 Pulse Rate 93 H 03/04/17 07:35 Respiratory Rate 18 03/04/17 07:35 Blood Pressure 121/70 03/04/17 07:35 O2 Sat by Pulse Oximetry (%) 96 03/03/17 21:00 Constitutional: Yes: No Distress Eyes: Yes: Conjunctiva Clear HENT: Yes: Atraumatic, Normocephalic Neck: Yes: Supple Cardiovascular: Yes: Regular Rate and Rhythm Respiratory: Yes: Regular, CTA Bilaterally Gastrointestinal: Yes: Normal Bowel Sounds, Soft Extremities: Yes: Other (rt big toe ulcer dressing in place) Edema: No Peripheral Pulses WNL: Yes Neurological: Yes: Alert, Oriented Psychiatric: Yes: Alert, Oriented Labs: INR, PTT INR 1.38 (0.82-1.09) H 03/03/17 14:25 Laboratory Results - last 24 hr 03/03/17 03/04/17 03/04/17 14:25 07:15 07:15 WBC 4.6 RBC 3.44 L Hgb 11.4 L Hct 34.4 L MCV 100.1 H MCHC 33.0 RDW 17.3 H Plt Count 89 L MPV 9.5 Neutrophils % 67.2 Lymphocytes % 22.1 D Monocytes % 8.0 Eosinophils % 1.4 Basophils % 1.3 INR 1.38 H Sodium 134 L Potassium 5.0 Chloride 93 L Carbon Dioxide 25 D Anion Gap 16 BUN 53 H D Creatinine 7.0 H D Creat Clearance w eGFR 8.21 Random Glucose 89 Calcium 9.9 Total Bilirubin 2.5 H AST 21 ALT 13 Alkaline Phosphatase 141 H Total Protein 6.7 Albumin 3.4 03/04/17 07:15 WBC RBC Hgb Hct MCV MCHC RDW Plt Count MPV Neutrophils % Lymphocytes % Monocytes % Eosinophils % Basophils % INR 1.43 H Sodium Potassium Chloride Carbon Dioxide Anion Gap BUN Creatinine Creat Clearance w eGFR Random Glucose Calcium Total Bilirubin AST ALT Alkaline Phosphatase Total Protein Albumin Assessment/Plan RT big toe ulcer ESRD AF HTN HYpercholestrolemia PLAN Continue wound Dressing Vascular Consult ,cardiology consult Continue home medications Monitor inr
[2017-03-04 08:22] LABS: BASOPHIL 1.3 % (0-2.0); EOSINOPHIL 1.4 % (0-4.5); MEAN CELL VOLUME 100.1 fl (80-96); MEAN PLT VOLUME 9.5 fl (7.5-11.1); NEUTROPHILS 67.2 % (42.8-82.8); PLATELET COUNT 89 K/MM3 (134-434); RDW 17.3 % (11.9-15.9); WHITE BLOOD COUNT 4.6 K/mm3 (4.0-10.0)
[2017-03-04 08:31] LABS: INR 1.43 (0.82-1.09); PROTHROMBIN TIME (PATIENT) 15.8 SEC (9.98-11.88)
[2017-03-04 08:52] LABS: ALBUMIN 3.4 g/dl (3.4-5.0); ALK PHOS 141 U/L (45-117); ANION GAP 16 (8-16); BILIRUBIN,TOTAL 2.5 mg/dL (0.2-1.0); CALCIUM 9.9 mg/dL (8.5-10.1); CO2 25 mmol/L (21-32); GLUCOSE,RANDOM 89 mg/dL (74-106); SGOT/AST 21 U/L (15-37); SGPT/ALT 13 U/L (12-78); TOT PROT 6.7 g/dl (6.4-8.2)
--- NOTE | 2017-03-04 09:20 | CON.CARD ---
Consult Consult Specialty:: cardio Referred by:: kiran Reason for Consultation:: cp, sob - History of Present Illness Chief Complaint: same History of Present Illness: 56 yo male here with cp and sob. also persisting non-healing toe ulcer. uses home O2 25/03 he says. for the past 1 week or so he notes signif sob with any activity. denies sore throat, wheezing, cough or fever/chills. describes atypical cp at rest, "cramping" quality, lasting 1-2 min. this has been going on approx 4 months, sometimes occurs during HD. not associated with the sob he says. no radiation of cp PMH: AF ESRD CAD diast CHF severe pulm HTN copd - Past Medical History Cardio/Vascular: Yes: CAD (Probable), HTN, Murmur, Pulmonary Hypertension (per last echo 05/2013) Pulmonary: Yes: COPD, O2 Dependent (see HPI) Renal/: Yes: Renal Failure, Hemodialysis, Other (s/p failed renal transplant see HPI) - Past Surgical History Past Surgical History: Yes: Hernia Repair, Kidney Transplant - Alcohol/Substance Use Hx Alcohol Use: No History of Substance Use: reports: None - Smoking History Smoking history: Former smoker Have you smoked in the past 12 months: No Aproximately how many cigarettes per day: 0 If you are a former smoker, when did you quit?: 2 years ago - Social History Usual Living Arrangement: With Child (one of his daughters) ADL: Family Assistance History of Recent Travel: No Home Medications - Allergies Allergies/Adverse Reactions: Allergies Allergy/AdvReac Type Severity Reaction Status Date / Time No Known Drug Allergies Allergy Verified 03/02/17 08:56 - Home Medications Home Medications: Ambulatory Orders Albuterol Sulfate [Proventil HFA Inhaler -] 1 - 2 inh PO QID #0 inhaler Sevelamer Carbonate [Renvela -] 800 mg PO TID #0 tab 09/09/12 Cinacalcet HCl [Sensipar] 30 mg PO [facility] 12/02/13 Acetaminophen [Tylenol] 650 mg PO PRN 10/14/14 Aspirin [Aspirin EC] 81 mg PO HS 02/08/15 Atorvastatin Ca [Lipitor] 20 mg PO HS 02/08/15 Calcitriol [Rocaltrol -] 1 mcg PO DAILY 02/08/15 Calcium Acetate [Phoslo] 1,334 mg PO TID 02/08/15 Calcium Carbonate 500 mg PO QID 02/08/15 Metoprolol Succinate [Toprol XL -] 25 mg PO DAILY 02/08/15 Pantoprazole Sodium [Protonix] 40 mg PO DAILY 02/08/15 Sucroferric Oxyhydroxide [Velphoro] 500 mg PO TID 02/08/15 Oxycodone HCl [Roxicodone -] 5 mg PO Q6H #20 tablet 08/03/15 Collagenase Clostridium Hist. [Santyl] 1 applic TP DAILY #90 oint...g. 02/12/17 Family Disease History - Family Disease History Family Disease History: CA: Mother Review of Systems - Review of Systems Constitutional: denies: Chills, Fever Eyes: denies: Eye Pain HENT: denies: Nasal Congestion Neck: denies: Stiffness Cardiovascular: denies: Palpitations Respiratory: denies: Orthopnea, PND Gastrointestinal: denies: Diarrhea, Rectal Bleeding Genitourinary: denies: Burning, Hematuria Musculoskeletal: denies: Muscle Pain Integumentary: denies: Rash Neurological: denies: Numbness, Seizure, Syncope Endocrine: denies: Excessive Sweating Hematology/Lymphatic: denies: Excessive Bleeding Vital Signs: Vital Signs Temperature 98.4 F 03/04/17 07:00 Pulse Rate 65 03/04/17 08:05 Respiratory Rate 18 03/04/17 08:05 Blood Pressure 108/72 03/04/17 08:05 O2 Sat by Pulse Oximetry (%) 96 03/03/17 21:00 Constitutional: Yes: Well Nourished, No Distress Eyes: No: Sclera Icterus HENT: No: Nasal Congestion Neck: No: Decreased ROM Respiratory: Yes: CTA Bilaterally. No: Accessory Muscle Use, Rales, Wheezes Gastrointestinal: Yes: Normal Bowel Sounds. No: Distention, Hepatomegaly, Palpable Mass, Tenderness Cardiovascular: Yes: Regular Rate and Rhythm JVD: Yes Carotid Bruit: No PMI: Non-Displaced Heart Sounds: Yes: S1, S2. No: Gallop Murmur: Yes: Systolic Murmur (early peak 2/6 MITZI LUSB.). No: Diastolic Murmur Musculoskeletal: Yes: Other (No kyphosis) Extremities: No: Cold, Cyanosis Edema: No Peripheral Pulses: 2+ Left Carotid, 2+ Right Carotid, 2+ Left Doralis Pedis, 2+ Right Dorsalis Pedis Integumentary: No: Jaundice Neurological: Yes: Alert, Oriented (x3) Psychiatric: No: Agitated - Other Data Labs, Other Data: CBC, BMP 03/04/17 07:15 03/04/17 07:15 INR, PTT INR 1.43 (0.82-1.09) H 03/04/17 07:15 Laboratory Tests 03/04/17 03/04/17 03/04/17 07:15 07:15 07:15 WBC 4.6 Hgb 11.4 L Plt Count 89 L INR 1.43 H Sodium 134 L Potassium 5.0 Carbon Dioxide 25 D BUN 53 H D Creatinine 7.0 H D AST 21 ALT 13 Imaging - Results Chest X-ray: Report Reviewed Assessment/Plan Echo 12/17 (outpt): normal LVEF. severe RV dysfunction. moderate (peak/mean 40 /20), mild-mod mitral stenosis (8 mmHg gradient). mild TR. RVSP 80. neg bubble study. Echo 03/2016: nl lv; rv mod dilated, with mod-sev reduced fcn; sev bradley; mod ms/ mr, sev tr, mod as/ar; mod-sev pr, mod ao root dil Persantine stress MPI 09/2013: small, mild apical inferior ischemia Cath (L+RHC) 12/2013: LPL severe lesion, RV marginal branch severe lesion--med rx, RHC RA 23, RV 75/20, PA 75/30 mean 45, PCW 25 (trans-pulm gradient 20) Cath (L+RHC) 02/2012: non-obstr cors, RHC RA8, RV 70/8, PA 64/25 mean 39, PCW: 14 CXR: clear lungs ECG: afib/flutter, RBBB/LPFB, nonspecific ST-Ts--no sig change vs 03/17; q waves in V5/6 have been noted on prior ecg's intermittently SOB: -? progressive pulm HTN sx's -? LV filling pressures up. severe JVD likely chronic finding. wt up 199 from 116 on 02/19 (in very thin pt) -will d/w renal ? try to target lower inter-HD wt -doubt anginal sx given mult other more likely etiologies (severe pulm htn, copd , diast chf). not a candidate for dobutamine stress testing (will have uncontrolled AF rates with risk of acute chf). not a candidate for persantine ( copd on home O2). can consider regadenoson nuclear stress test in our office--d/ w'd dr dean, will defer to him -would defer cath given only branch dz on 2013 angiogram, reconsider if clinical features of angina/ischemia develop -doubt valvular sx given remains with moderate or less and MS on recent study done at [facility] 12/17 AFib: - here 03/17 with rapid HRs, with acute sob ? related to increased MV gradient ( moderate stenosis at rest on echo then) - treated with toprol 25 bid, diltiazem 60 TID--HRs controlled on this regimen and pt tolerating, per dr dean office f/u note - PLTs 80s last admit and presently, ? if had heme eval - cont warfarin, ? home dose--INR subtherapeutic, incr dose as needed to target INR 2-3 Valvular hrt disease (moderate MR/MS, moderate /AI, severe TR) - mild-mod functional mitral stenosis--AF rate control as doing - remains moderate on recent echo--no need to repeat here, this is not likely contributing to sob/cp. if sx's remain unexplained, consider repeating study at [place] to r/o low-gradient severe with preserved EF (SARAHY not available on 12/17 report). Severe pulm HTN, likely mixed etiology with right heart failure, diast LV failure - prior RHCs with suggestion of PADP disproportionately elevated vs wedge pressure (2011 cath), and more recently with elevated TPG--likely pulm vasculature etiology on top of LV diast chf -has had prior w/u (VQ scan nl, CT mild emphysematous changes, PFT's c/w restrictive pulmonary disease). -on home O2 -no pulm vasodilators rec'd by his pulm htn specialist (ariela at [facility]) CAD - unrevascularized branch dz (LPL, RV marginal branch)--MPI small apical- inferior ischemia at that time - has had no angina/ischemic issues on med mgmt - cont statins, metopr. on ASA as outpt (plus AC)--per dr dean HTN - well controlled - cont home meds PVD - non-healing R toe ulcer - followed by vascular (jhonny), recent LE angio thrombocytopenia: -PLT 80s, stable vs 03/17 admit -? if had heme w/u--defer to pmd -lytic bone lesions noted on CXR report
[2017-03-04] MEDS ORDERED: PT OWN MED DRAWER 7, Y5N ONE (10:40)
[2017-03-04] MEDS: PANTOPRAZOLE 40 MG TABLET (FP) PO SCH (12:12)
[2017-03-04] MEDS: METOPROLOL SUCCINATE 25 MG TAB.SR.24H (FP) PO SCH ×3 (12:12→21:08)
[2017-03-04] MEDS: CALCITRIOL 0.25 MCG CAPSULE (FP) PO SCH (12:12)
--- NOTE | 2017-03-04 12:48 | PN ---
Progress Note, Physician History of Present Illness: The patient is a 56 year old male, with a significant past medical history of ESRD, on HD at [facility] on MWFS ( 4 times a week) , anemia, CHF, asthma, COPD (2L of O2 at home PRN), PVD, who presents to the emergency department with pain to his right great toe ulcer today. The patient s/p right lower extremity angiogram with no stenosis visualized on 02/24/[address] Shailesh Hou. Seen on Hemodialysis. Tolerating well. BP stable. - Current Medication List Current Medications: Active Medications Acetaminophen (Tylenol -) 650 mg PO Q6H PRN PRN Reason: FEVER OR PAIN Last Admin: 03/04/17 07:50 Dose: 650 mg Aspirin (Ecotrin -) 81 mg PO [facility] Last Admin: 03/03/17 23:46 Dose: 81 mg Atorvastatin Calcium (Lipitor -) 20 mg PO HS [facility] Last Admin: 03/03/17 23:47 Dose: 20 mg Calcitriol (Rocaltrol -) 1 mcg PO DAILY [facility] Last Admin: 03/04/17 12:12 Dose: 1 mcg Calcium Acetate (Phoslo -) 1,334 mg PO TIDCM [facility] Last Admin: 03/04/17 12:12 Dose: 1,334 mg Cinacalcet (Sensipar -) 30 mg PO ACDIN [facility] Last Admin: 03/03/17 17:04 Dose: 30 mg Collagenase (Santyl -) 1 applic TP DAILY [facility] Last Admin: 03/03/17 09:21 Dose: 1 applic Diltiazem HCl (Cardizem -) 60 mg PO TID [facility] Metoprolol Succinate (Toprol Xl -) 25 mg PO BID [facility] Last Admin: 03/04/17 12:12 Dose: 25 mg Non-Formulary Med ( Sucroferric Oxyhydroxide [ Velphoro] 500mg Tab) 1 each PO TIDCM [facility] Oxycodone HCl (Roxicodone -) 5 mg PO Q6H PRN Last Admin: 03/04/17 07:50 Dose: 5 mg Pantoprazole Sodium (Protonix -) 40 mg PO DAILY [facility] Last Admin: 03/04/17 12:12 Dose: 40 mg Sevelamer Carbonate (Renvela -) 800 mg PO TIDCM [facility] Last Admin: 07/03/17 12:12 Dose: 800 mg Warfarin Sodium (Coumadin -) 7 mg PO DAILY@1800 [facility] - Objective Vital Signs: Vital Signs Temperature 97.8 F 03/04/17 10:51 Pulse Rate 64 03/04/17 10:51 Respiratory Rate 18 03/04/17 10:51 Blood Pressure 142/62 03/04/17 10:51 O2 Sat by Pulse Oximetry (%) 96 03/03/17 21:00 Constitutional: Yes: Well Nourished, No Distress Eyes: Yes: Conjunctiva Clear HENT: Yes: Normocephalic Neck: Yes: Supple Cardiovascular: Yes: Pulse Irregular, S1, S2 Respiratory: Yes: Regular, CTA Bilaterally Gastrointestinal: Yes: Normal Bowel Sounds, Soft Genitourinary: No: CVA Tenderness - Left, CVA Tenderness - Right Musculoskeletal: Yes: Joint Stiffness Labs: CBC, BMP 03/04/17 07:15 03/04/17 07:15 INR, PTT INR 1.43 (0.82-1.09) H 03/04/17 07:15 Problem List - Problems (1) Cellulitis of great toe, right Code(s): L03.031 - CELLULITIS OF RIGHT TOE (2) ESRD (end stage renal disease) on dialysis Code(s): N18.6 - END STAGE RENAL DISEASE Z99.2 - DEPENDENCE ON RENAL DIALYSIS (3) Anemia in ESRD (end-stage renal disease) Code(s): N18.6 - END STAGE RENAL DISEASE D63.1 - ANEMIA IN CHRONIC KIDNEY DISEASE (4) CHF (congestive heart failure) Code(s): I50.9 - HEART FAILURE, UNSPECIFIED (5) Peripheral artery insufficiency Code(s): I73.9 - PERIPHERAL VASCULAR DISEASE, UNSPECIFIED (6) Peripheral vascular disease Code(s): I73.9 - PERIPHERAL VASCULAR DISEASE, UNSPECIFIED (7) Toe ulcer Code(s): L97.509 - NON-PRESSURE CHRONIC ULCER OTH PRT UNSP FOOT W UNSP SEVERITY Qualifiers: Laterality: right Non-pressure ulcer stage: limited to breakdown of skin Qualified Code(s): L97.511 - Non-pressure chronic ulcer of other part of right foot limited to breakdown of skin Assessment/Plan This is a 56 y/o male with ESRD, on HD MWF& S. 4 Times a week Right toe ulcer, with discharge. R/o Vascular disease vs. Osteomyelitis. IV antibiotics as ordered. Vascular evaluation. Cardiology follow up and w/u noted. Orders for HD reviewed with the RN. Will follow Kayla Rai MD
[2017-03-04] MEDS: dilTIAZem HCL 60 MG TABLET (FP) PO SCH ×2 (15:09→20:48)
[2017-03-04] MEDS ORDERED: WARFARIN NA 2 MG TABLET (UD) ONE (17:00)
[2017-03-04] MEDS ORDERED: WARFARIN NA 5 MG TABLET (UD) ONE (17:00)
[2017-03-04] MEDS: CINACALCET HCL 30 MG TAB (FP) PO SCH (17:25)
[2017-03-04] MEDS ORDERED: WARFARIN NA 7.5 MG TABLET (FP) PO SCH (18:00)
[2017-03-04] MEDS ORDERED: WARFARIN NA 5 MG, WARFARIN NA 2 MG PO SCH (18:00)
[2017-03-04] MEDS: COLLAGENASE CLOSTRIDIUM HIST. 30 GRAMS TUBE TP SCH (18:51)
[2017-03-04 18:56] VITALS: BP 136/69; PULSE 127; TEMP 98
--- NOTE | 2017-03-04 19:40 | PN ---
Progress Note (short form) - Note Progress Note: Vascular Surgery Pt seen and examined. Right foot stable with ulcers Angiogram found no lesions. All small vessel disease in foot. Can be DC home and pt can follow up in wound care clinic Shailesh Hou DO
[2017-03-04] MEDS ORDERED: oxyCODONE HCL 5 MG TABLET PO ONE (20:45)
[2017-03-04] MEDS ORDERED: ACETAMINOPHEN 325 MG TABLET (FP) PO ONE (20:45)
[2017-03-04] MEDS: ASPIRIN COATED 81 MG TABLET.EC PO SCH ×2 (20:49→21:06)
[2017-03-04] MEDS: ATORVASTATIN CA 20 MG TABLET (FP) PO SCH ×2 (20:49→21:08)
[2017-03-07 00:06] LABS: HEP B SURFACE AB Reactive (.)
--- NOTE | 2017-03-07 22:04 | DS ---
Physical Examination Vital Signs: Vital Signs Temperature 98.0 F 03/04/17 18:00 Pulse Rate 127 H 03/04/17 18:00 Respiratory Rate 18 03/04/17 18:00 Blood Pressure 136/69 03/04/17 18:00 O2 Sat by Pulse Oximetry (%) 96 03/04/17 20:45 Labs: CBC, BMP 03/04/17 07:15 03/04/17 07:15 Discharge Summary Reason For Visit: ESRD ON DIALYSIS, CELLULITIS OF GREAT TOE (RIGHT) Severe pvd with painful vascular ulcer distal great toe rt ESRD on dialysis HTN AF Anemia cad PUL hypertension Hospital Course: Pt admitted with severe PVD Painful great toe ulcer, X ray rt foot shows Loss of bone density,soft tissue ulcer X ray chest no infiltrate EKG shows AF,PVCs,RBB CBC shows,nlo evidence of Leucocytosis PT was seen by ID.as per ID no indication for antibiotics Pt was followed by Renal,vascular and cardiology Pt was treated with home medications and wound dressing Pt d/c home in a stable condition and rec to f/u at wound care clinic Pt was stable in the floor Condition: Good - Instructions Diet, Activity, Other Instructions: follow up in wound care in one week call for appt -- [phone] santyl to wound daily new meds called into pharmacy Referrals: Franca Shields MD [Primary Care Provider] - Disposition: HOME - Home Medications Comprehensive Discharge Medication List: Ambulatory Orders Albuterol Sulfate [Proventil HFA Inhaler -] 1 - 2 inh PO QID #0 inhaler Sevelamer Carbonate [Renvela -] 800 mg PO TID #0 tab 09/09/12 Cinacalcet HCl [Sensipar] 30 mg PO [facility] 12/02/13 Acetaminophen [Tylenol] 650 mg PO PRN 10/14/14 Aspirin [Aspirin EC] 81 mg PO HS 02/08/15 Atorvastatin Ca [Lipitor] 20 mg PO HS 02/08/15 Calcitriol [Rocaltrol -] 1 mcg PO DAILY 02/08/15 Calcium Acetate [Phoslo] 1,334 mg PO TID 02/08/15 Calcium Carbonate 500 mg PO QID 02/08/15 Pantoprazole Sodium [Protonix] 40 mg PO DAILY 02/08/15 Sucroferric Oxyhydroxide [Velphoro] 500 mg PO TID 02/08/15 Oxycodone HCl [Roxicodone -] 5 mg PO Q6H #20 tablet 08/03/15 Collagenase Clostridium Hist. [Santyl] 1 applic TP DAILY #90 oint...g. 02/12/17 Diltiazem [Cardizem -] 60 mg PO TID #0 tablet 03/04/17 Metoprolol Succinate [Toprol XL -] 25 mg PO BID #60 tab.sr.24h 03/04/17 Warfarin Na [Coumadin -] 6 mg PO DAILY@1800 #0 tablet 03/04/17
== END 2017-03-04 21:06 | disposition home or self-care (01) | DRG 299 ==
LOC: JER 08:47 → JERBED 12:18 → J5S 14:39
PROVIDERS: ADMIT Family Medicine; ATTEND Family Medicine
PROC: 5A1D00Z (ICD-10-PCS; principal; 2017-03-04)
DX: I73.9 Peripheral vascular disease, unspecified (principal); N18.6 End stage renal disease; I13.2 Hypertensive heart and chronic kidney disease with heart failure and with stage 5 chronic kidney disease, or end stage renal disease; Z94.0 Kidney transplant status; L03.031 Cellulitis of right toe; L97.511 Non-pressure chronic ulcer of other part of right foot limited to breakdown of skin; D63.1 Anemia in chronic kidney disease; J44.9 Chronic obstructive pulmonary disease, unspecified; Z99.81 Dependence on supplemental oxygen; I50.9 Heart failure, unspecified; Z99.2 Dependence on renal dialysis; K21.9 Gastro-esophageal reflux disease without esophagitis; I27.2 Other secondary pulmonary hypertension; Z87.891 Personal history of nicotine dependence; I36.1 Nonrheumatic tricuspid (valve) insufficiency; I34.2 Nonrheumatic mitral (valve) stenosis; D69.6 Thrombocytopenia, unspecified
CPT/HCPCS: 36415; 71020-TC; 73630-TC-RT; 80053; 83605; 85025; 85610; 85651; 86140; 86704; 86706; 86708; 86803; 87340; 93005; 93010; 99283-25; J0885